=== PATIENT | male | born 1995 | race Caucasian/White ===

== ENCOUNTER 2020-03-06 11:07 | Emergency (ER) | payer BC ==
[~2020-03-06] VITALS: Ht 172.7 cm; Wt 122.5 kg
[2020-03-06 11:14] VITALS: BP 145/78
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
--- NOTE | 2020-03-06 11:20 | NUR ---
Dr. Puentes at bedside to evaluate patient
--- NOTE | 2020-03-06 11:31 | NUR ---
RUE xray taken at bedside
--- NOTE | 2020-03-06 11:55 | NUR ---
Splint and sling applied by EMT
--- NOTE | 2020-03-06 11:57 | NUR ---
PLACED BOXER SPLINT AND SLING ON RIGHT HAND OF PT
--- NOTE | 2020-03-06 12:02 | NUR ---
Patient medically cleared for discharge. CD of xrays given to take to orthopaedic consult. Given copy of discharge instructions and script. Patient verbalized understanding of instructions and prescription. Gait steady, ID band removed. All belongings taken with patient.
== END 2020-03-06 12:02 | disposition home or self-care (01) ==
LOC: MED 11:07
DX: M79.644 Pain in right finger(s) (principal); R03.0 Elevated blood-pressure reading, without diagnosis of hypertension; Y04.0XXA Assault by unarmed brawl or fight, initial encounter; Y93.89 Activity, other specified; Y92.89 Other specified places as the place of occurrence of the external cause; Y99.8 Other external cause status
CPT/HCPCS: 29125; 73130; 99283; Q0092